=== PATIENT | female | born 1950 | race Caucasian/White ===

== ENCOUNTER → 2016-03-03 | Outpatient (CLI) | payer BC, OTHER ==
--- NOTE | 2016-03-03 16:40 | MAMMOGRAPHY REPORT ---
BILATERAL DIGITAL SCREENING MAMMOGRAM TOMOSYNTHESIS WITH CAD: 03/03/2016 CLINICAL HISTORY: Routine screening. Patient has no complaints. TECHNIQUE: Breast tomosynthesis in addition to standard 2D mammography was performed. Current study was also evaluated with a Computer Aided Detection (CAD) system. COMPARISON: Comparison is made to exams dated: 03/02/2015 mammogram, 11/20/2012 mammogram, 12/27/2013 mammogram - [facility], and 09/20/2011 mammogram - [facility]. BREAST COMPOSITION: The tissue of both breasts is heterogeneously dense, which may obscure small ma sses. FINDINGS: No suspicious masses, calcifications, or areas of architectural distortion are noted in e ither breast. There has been no significant interval change compared to prior exams. IMPRESSION: ACR BI-RADS CATEGORY 1: NEGATIVE There is no mammographic evidence of malignancy. A 1 year screening mammogram is recommended. The p atient will receive written notification of the results. Approximately 10% of breast cancers are not detected with mammography. A negative mammographic repor t should not delay biopsy if a clinically suggestive mass is present. Romina Ray M.D. ah/:03/03/2016 13:52:22 [employer] Driver: Chaya EWING(Ricardo)(M), [facility] letter sent: Normal 1/2 BI-RADS Code: ACR BI-RADS Category 1: Negative
== END | disposition home or self-care (01) ==
LOC: C.MAMM 09:45
PROVIDERS: ATTEND Family Medicine
DX: Z12.31 Encounter for screening mammogram for malignant neoplasm of breast (principal)

== ENCOUNTER → 2016-03-29 | Outpatient (CLI) | payer BC, OTHER | END | disposition home or self-care (01) | LOC: C.PAPS 13:46 | PROVIDERS: ATTEND Obstetrics & Gynecology | DX: Z01.419 Encounter for gynecological examination (general) (routine) without abnormal findings (principal) ==

== ENCOUNTER → 2017-05-09 | Outpatient (CLI) | payer OTHER ==
--- NOTE | 2017-05-09 15:15 | MAMMOGRAPHY REPORT ---
BILATERAL DIGITAL SCREENING MAMMOGRAM TOMOSYNTHESIS WITH CAD: 05/09/2017 CLINICAL HISTORY: Routine screening. Patient has no complaints. TECHNIQUE: Breast tomosynthesis in addition to standard 2D mammography was performed. Current study was also evaluated with a Computer Aided Detection (CAD) system. COMPARISON: Comparison is made to exams dated: 03/03/2016 mammogram, 03/02/2015 mammogram, 12/27/2013 ma mmogram, 11/20/2012 mammogram - [facility], 09/20/2011 mammogram, and 01/08/2008 mamm ogram - [facility]. BREAST COMPOSITION: The tissue of both breasts is heterogeneously dense, which may obscure small mas ses. FINDINGS: The parenchymal pattern is unchanged. No developing mass, architectural distortion or clus ter of suspicious microcalcifications is seen in either breast. IMPRESSION: ACR BI-RADS CATEGORY 2: BENIGN There is no mammographic evidence of malignancy. A 1 year screening mammogram is recommended. The pa tient will receive written notification of the results. Approximately 10% of breast cancers are not detected with mammography. A negative mammographic report should not delay biopsy if a clinically suggestive mass is present. Jeny Dobson M.D. ay/:05/09/2017 08:08:51 Principal Consultant: Gabrielle EWING(Ricardo)(Josue)(BD), [facility] letter sent: Normal 1/2 BI-RADS Code: ACR BI-RADS Category 2: Benign
== END | disposition home or self-care (01) ==
LOC: C.MAMM 07:09
PROVIDERS: ATTEND Family Medicine
DX: Z12.31 Encounter for screening mammogram for malignant neoplasm of breast (principal)

== ENCOUNTER 2019-10-01 06:39 | Observation (INO) ==
--- NOTE | 2019-08-29 14:28 | PAT Medication Instructions ---
Medication Instructions Date of Service August 29, 2019 Home Medications Medication Instructions Recorded Wheeled Walker #1 ea 07/18/19 Wheeled Walker #1 ea 07/18/19 atorvastatin 40 mg tablet 40 mg PO QAM doxepin 25 mg capsule 25 mg PO HS betamethasone dipropionate 1 applic TOPICAL BID PRN losartan 100 mg PO QAM meloxicam 15 mg PO QAM ASK your surgeon for instructions meloxicam 15 mg PO QAM STOP taking 24 hours before surgery betamethasone dipropionate 1 applic TOPICAL BID PRN DO NOT take the morning of surgery losartan 100 mg PO QAM Take morning of surgery With a small sip of water, OTHERWISE NOTHING TO EAT OR DRINK AFTER MIDNIGHT: atorvastatin 40 mg tablet 40 mg PO QAM Take evening before surgery doxepin 25 mg capsule 25 mg PO HS Other Notes If you have any questions please call us at [phone] or [phone] or [phone] or [phone]
--- NOTE | 2019-09-02 09:53 | Anesthesiology Consultation ---
Date of Service September 02, 2019 Assessment & Plan (1) Encounter for pre-operative examination: COVID Status: As of 09/01 assessment, patient denies travel to endemic area, known exposure/sick contacts, or symptoms of COVID19. Patient instructed to follow strict social distancing guidelines, wear a mask in public and avoid travel for 14 days prior to surgery. Preoperative COVID19 testing to be completed 09/25 per patient. Patient made aware to self-isolate as much as possible between COVID testing and surgery. Chart Review Chart Review: Acceptable Risk for Surgery and Patient seen in Pre Admission Testing Teaching & Discussion Instructed NPO after midnight before surgery, except medications with 15 cc of water. Medication instructions provided according to the PAT guidelines. History Surgery Operation Date: 10/01/19 10:40 Proposed Procedures p Left Total Knee Arthroplasty - Malik Acevedo MD Height/Weight Height: 5 ft 4 in Weight: 80.2 kg Allergies Allergy/AdvReac Type Severity Reaction Status Date / Time Penicillins Allergy Unknown unknown - Verified 08/29/19 10:18 as a child Medications Home Medications Medication Instructions Recorded Confirmed Last Taken atorvastatin 40 mg tablet 40 mg PO QAM 03/04/19 08/29/19 Unknown doxepin 25 mg capsule 25 mg PO HS 03/04/19 08/29/19 Unknown Wheeled Walker #1 ea 07/18/19 07/18/19 Unknown Wheeled Walker #1 ea 07/18/19 07/18/19 Unknown betamethasone dipropionate 1 applic TOPICAL BID PRN 08/29/19 08/29/19 Unknown losartan 100 mg PO QAM 08/29/19 08/29/19 Unknown meloxicam 15 mg PO QAM 08/29/19 08/29/19 Unknown Past Medical History Medical History Cardiac murmur Normal valves per echo 2014. Degenerative arthritis of knee, bilateral Diverticular disease GERD (gastroesophageal reflux disease) rarely -- diet regulated Hyperlipidemia Hypertension Osteoarthritis Psoriasis Exercise / Class Metabolic Activity II 4-5 Yardwork/Stairs/Walk up hill (Does not do stairs much but rides recumbant bicycle 5x per week, denies CP or SOB with activity) Past Family History Family History Other No family history of adverse response to anesthesia Past Surgical History Surgical History History of colonoscopy History of dental surgery History of tonsillectomy Past Anesthesia History No Hx of Anesthesia Complications (other than PONV) and No Family Hx of Anesthesia Complications History of PONV No Hx of Motion Sickness and History of PONV (remote hx) Social History Smoking Status: Former smoker tobacco type: cigarettes Do You Dip or Chew Tobacco: No Smoking End Date: 1991 Hx Alcohol Use: Yes Alcohol type: beer alcohol intake frequency: a few times a week Hx Substance Use: No substance use type: does not use Review of Systems Pt denies any recent chest pain, shortness of breath, palpitations, cough, fever or URI. Physical Exam Vital Signs BP: 173/90 (pt reports this is very elevated for her, usually 130s systolic at home, she is nervous today) P: 85bpm SPO2: 97% RA T: 98.5 F R: 12 ENMT Mouth: + dental bridge (Upper R side and lower L side) and + dental restorations (crowns, implants, bridge); no chipped teeth and no loose teeth Thyromental Distance: < 3.5 Finger Breadths (3) Mallampati Class: I Neck normal visual inspection and + limited neck extension (mildly) Respiratory normal respiratory effort Auscultation: lungs clear to auscultation bilaterally Cardiovascular Rate/Rhythm: regular rate and regular rhythm Heart Sounds: + murmur (I/ systolic) Extremities: no edema Testing Laboratory Results 09/02/19 10:05 09/02/19 10:49 PT 10.3 Seconds (9.0-12.0) 09/02/19 10:05 INR 1.0 (0.9-1.1) 09/02/19 10:05 APTT 31.3 Seconds (21.0-31.0) H 09/02/19 10:05 Blood Type O Negative 09/02/19 10:05 Antibody Screen NEGATIVE 09/02/19 10:05 Electrocardiogram Date: 09/02/19 Findings: + NSR @ (89bpm) Chest X-Ray Date: 09/02/19 Findings: + NAD Echocardiogram Date: 07/11/14 EF: 65% LV Function: normal RWMA: + none Other Findings: + diastolic dysfunction (Grade I); no LVH Mild pulmonary HTN (PASP 36 mmHg).
--- NOTE | 2019-09-02 10:24 | XRay Report ---
XR chest Pre-admission PA/Lat CLINICAL HISTORY: Preoperative evaluation. COMPARISON STUDY: No previous studies for comparison. FINDINGS: Lung volumes are normal. Lungs are clear. There is no pneumothorax or pleural effusion. Car diac size is normal. Mediastinal contours are normal. There is no evidence for pulmonary edema. IMPRESSION: No acute cardiopulmonary findings. ACT 112: Negative or not required by law. Electronically signed by: Kirill Gomez M.D. 09/02/2019 10:23 AM
[2019-09-02 10:29] LABS: Basophils # (auto) 0.03 K/uL (0-0.2); Basophils % (auto) 0.4 %; Eosinophils # (auto) 0.29 K/uL (0-0.5); Hemoglobin 12.6 g/dL (12.0-16.0); Immature Granulocytes # (auto) 0.01 K/uL (0.00-0.02); Immature Granulocytes % (auto) 0.1 %; Lymphocytes # (auto) 1.68 K/uL (1.2-3.4); Lymphocytes % (auto) 23.1 %; Mean Corpuscular Hemoglobin 30.9 pg (25-34); Mean Corpuscular Hgb Conc 33.2 g/dL (32-36); Mean Corpuscular Volume 93.1 fL (80-100); Mean Platelet Volume 10.3 fL (7.4-10.4); Monocytes # (auto) 0.47 K/uL (0.11-0.59); Monocytes % (auto) 6.5 %; Neutrophils # (auto) 4.79 K/uL (1.4-6.5); Neutrophils % (auto) 65.9 %; Platelet Count 267 K/uL (130-400); RDW Coefficient of Variation 13.3 % (11.5-14.5); RDW Standard Deviation 45.2 fL (36.4-46.3); Red Blood Count 4.08 M/uL (4.2-5.4); White Blood Count 7.27 K/uL (4.8-10.8)
[2019-09-02 10:37] LABS: Partial Thromboplastin Ratio 1.1; Partial Thromboplastin Time 31.3 Seconds (21.0-31.0); Prothrombin Time 10.3 Seconds (9.0-12.0)
[2019-09-02 12:21] LABS: BUN Creatinine Ratio 11.8 (10-20); Calcium 9.2 mg/dl (8.5-10.1); Creatinine Clr Calc Pharmacy 51.3 ml/min; Est GFR (African American) 60.8; Est GFR (Non-African American) 52.5; Potassium 4.3 mmol/L (3.5-5.1)
--- NOTE | 2019-09-03 06:20 | Electrocardiogram Report ---
Test Reason : Blood Pressure : / mmHG Vent. Rate : 089 BPM Atrial Rate : 089 BPM P-R Int : 158 ms QRS Dur : 074 ms QT Int : 360 ms P-R-T Axes : 071 044 054 degrees QTc Int : 438 ms Normal sinus rhythm Normal ECG No previous ECGs available Confirmed by Jason Roe ([id number]) on 09/03/2019 6:19:51 AM Referred By: Malik Acevedo Confirmed By:Jason Roe
--- NOTE | 2019-09-29 09:12 | History and Physical Report ---
DATE OF ADMISSION: 10/01/2019 CHIEF COMPLAINT: Bilateral knee pain and discomfort, left side greater than the right. HISTORY OF PRESENT ILLNESS: A 69-year-old white female who presents for treatment of her knees. I have been following her in the past several years with injections. This became less successful over time. Left knee is bothering her more in the right. She describes global pain. The more she is on it, the more it hurts. She has a limited walking tolerance. She has difficulty going up and down stairs. Her knee gives out on her intermittently. She was hoping to have both knees fixed at some point. PAST MEDICAL HISTORY: 1. Hypertension. 2. Elevated cholesterol. 3. Heart murmur. 4. Gastroesophageal reflux disease. 5. Mild obesity. PAST SURGICAL HISTORY: Include: 1. Tonsillectomy. 2. Oral surgery. ALLERGIES: PENICILLIN, REACTIONS UNKNOWN. This was when she was an infant. CURRENT MEDICATIONS: Include; 1. Meloxicam 15 mg. 2. Losartan 50 mg a day. 3. Atorvastatin 40 mg. 4. Doxepin 25 mg a day. SOCIAL HISTORY: A 69-year-old female. She lives in [place]. Three drinks per week. Quit smoking 20 years ago. FAMILY HISTORY: Noncontributory. REVIEW OF HISTORY: Negative for diabetes, neurologic problem, vascular problems or bleeding disorders. No chest pain or shortness of breath. No history of DVT or PE. No known bleeding problems. PHYSICAL EXAMINATION GENERAL: Shows a pleasant, middle-aged female who looks to be in pretty good health. HEENT: Benign. NECK: Supple, no lymphadenopathy. LUNGS: Clear to auscultation. HEART: Has a regular rate and rhythm. ABDOMEN: Soft, nontender, nondistended. EXTREMITIES: Grossly neurovascularly intact except as follows: Examination of both knees reveal patient walks with a bit of a slow kind of shuffling gait. Examination of the left knee reveals fairly neutral alignment. She is tender over the medial joint line. Small knee effusion. Range of motion is couple degrees short of full extension to 125 degrees of flexion. There is no instability. No pain with hip motion. Examination of the right knee reveals fairly neutral alignment. She is tender over the medial joint line. Small knee effusion. Range of motion 0-125. No instability. X-RAYS: X-rays of both knees reveal advanced medial compartment DJD. She has got complete loss of medial joint space in both knees. She has got osteophytes off the medial femoral condyle, medial tibial plateau and cystic changes. Right knee is actually a little bit worse radiographically than the left. ASSESSMENT: A 69-year-old female with history of hypertension, elevated cholesterol, gastroesophageal reflux disease and mild obesity with advanced bilateral knee degenerative joint disease, left side more symptomatic than the right. She has failed conservative treatment and would like to have her left knee replaced. PLAN: We are going to proceed with left knee replacement. The risks and benefits of this procedure were explained to the patient including but not limited to DVT, PE, , infection, neurological injury, vascular injury, bleeding problem, pain, limited range of motion, stiffness, failure to relieve her symptoms, incomplete relief of symptoms, need for further surgery in future, fracture, leg length inequality, nerve palsy, persistent pain, etc. The patient understands and desires to proceed. Informed consent was obtained. She is planning likely be discharged to home. Her daughter is a physical therapist and will likely do therapy with her. She will hold the Mobic 10 days preop. We can use this for postoperative pain control as well.
[~2019-10-01 06:39] MED LIST: ACETAMINOPHEN 500 MG TAB PO SCH; BUPIVACAINE 0.5 % 5 MG/1 ML PF 10ML VIAL ONE; BUPIVACAINE LIPOSOME/PF 266 MG, BUPIVACAINE/EPINEPHRINE 50 ML, SODIUM CHLORIDE 0.9% 30 ... INFIL SCH; CEFAZOLIN 2000MG 2,000 MG/15 ML SYR IV SCH; FAMOTIDINE 20 MG TAB PO SCH; GABAPENTIN 300 MG CAP PO SCH; LR 500ML BOLUS, THEN 15ML/HR IV SCH; LR 60ML/HR IV SCH; METOCLOPRAMIDE HCL 10 MG TABLET PO SCH; TRANEXAMIC ACID 1,000 MG **IV Intra-op IV SCH
--- NOTE | 2019-10-01 06:47 | History & Physical Bridge Note ---
Date of Service October 01, 2019 History & Physical Bridge Note I have examined the patient, reviewed the History & Physical and in the interval since the performance of the History & Physical I have noted the following changes of clinical significance: no changes noted
[2019-10-01] MEDS ORDERED: fentaNYL citrate 100 MCG/2 ML VIAL ONE (07:06)
[2019-10-01] MEDS ORDERED: PROPOFOL IV EMULSION 10 MG/ML 20 ML VIAL IV ONE ×2 (07:06→09:50)
[2019-10-01] MEDS ORDERED: MIDAZOLAM HCL 1 MG/ML 2ML VIAL ONE (07:06)
[2019-10-01] MEDS ORDERED: fentaNYL citrate 100 MCG/2 ML VIAL IV PRN (08:02)
[2019-10-01] MEDS ORDERED: ATROPINE SULFATE 0.1 MG/ML 10ML SYR IV PRN (08:02)
[2019-10-01] MEDS ORDERED: ePHEDrine sulfate 50 MG/ML AMP IV PRN (08:02)
[2019-10-01] MEDS ORDERED: ONDANSETRON INJ 2 MG/ML 2 ML VIAL IV PRN ×2 (08:02→12:01)
[2019-10-01] MEDS ORDERED: BACITRACIN INJ 50,000 UNIT VIAL ONE (08:20)
[2019-10-01] MEDS ORDERED: SODIUM CHLORIDE 0.9% PF 50 ML VIAL ONE (08:20)
[2019-10-01] MEDS ORDERED: BUPIVACAINE LIPOSOME 1.3% 266 MG/20 ML VIAL ONE (08:20)
[2019-10-01] MEDS ORDERED: BUPIVACAINE/EPINEPHRINE 0.25% 1:200,000 30 ML VIAL ONE (08:20)
--- NOTE | 2019-10-01 10:17 | Post Operative Brief Note ---
PG Immediate Post Op with CF Date of Surgery October 01, 2019 Pre & Post Diagnosis Operation Date: 10/01/19 08:50 Pre-Op Diagnosis: Left Knee Degenerative Joint Disease Post-Op Diagnosis: Left Knee Degenerative Joint Disease I identified the patient and participated in the time-out.: Yes Procedure Operation Date: 10/01/19 08:50 Actual Procedures p Left Total Knee Arthroplasty.(Left) - Malik Acevedo MD Surgeon Malik Acevedo MD [employer] Nurse Michael, PAC Estimated Blood Loss 50 Findings Consistent with Post-Op Diagnosis Fluids 600 cc Specimens Specimen Description: A. Left knee bone and tissue. Drains Curtis Catheter Anesthesia Type Spinal MAC Complications none Disposition Accompanied Patient To Recovery: Yes Disposition: Recovery Room
--- NOTE | 2019-10-01 10:33 | Operative Report ---
Post Operative Report Pre & Post Diagnosis Operation Date: 10/01/19 08:50 Pre-Op Diagnosis: Left Knee Degenerative Joint Disease Post-Op Diagnosis: Left Knee Degenerative Joint Disease I identified the patient and participated in the time-out.: Yes Procedure Operation Date: 10/01/19 08:50 Actual Procedures p Left Total Knee Arthroplasty.(Left) - Malik Acevedo MD Surgeon Malik Acevedo MD [employer] Developer Mihcael, PAC Estimated Blood Loss 50 Findings Consistent with Post-Op Diagnosis Operative findings revealed advanced left knee DJD with extensive grade 4 [id number] disease of the medial compartment with eburnation of the medial femoral condyle medial tibial plateau. She had some spotty grade 4 changes elsewhere. Moderate-sized joint effusion. Osteophytes primarily in the medial compartment. Fluids 600 cc. Specimens Left knee sent for pathology. Drains None. Anesthesia Type Spinal MAC Complications none Disposition Accompanied Patient To Recovery: Yes Disposition: Recovery Room Indications Patient is a 69-year-old female long-term patient of mine with a long history of bilateral knee pain discomfort left side bit worse than the right. She been through extensive conservative treatment over the years which is become less successful over time P the left knee was bothering her more than the right. X- rays show advanced knee arthritis. She elected to total knee arthroplasty. Description of Procedure Operative implants consist of: 1. Biomet Vanguard size 62.5 left posterior stabilized femoral component. 2. Size 67 tibial tray. 3. 10 mm posterior stabilized polyethylene insert. 4. 28 x 8 all poly-patella. Patient was taken to the operating room identified and placed on the operating table supine position protectors were properly padded. IV antibiotics arrived by anesthesia team. A spinal anesthetic and abductor canal block had provided in the holding area. Curtis catheter was placed in sterile fashion. Left thigh tip was then placed in the left lower extremities and prepped and draped in usual sterile fashion. The left leg was elevated exsanguinated with use of an Esmarch and a tourniquet was placed at 300 mmHg. An anterior approach to the left knee was then performed to longitudinal incision centered over the patella. Sharp dissection was got through subcutaneous tissue down to the extensor mechanism. A medial parapatellar arthrotomy incision was made. Some subperiosteal dissection was carried out medially. The fat pad was resected from each patella tendon. Lateral patellofemoral ligament was released. Patella was subluxated laterally and the knee was flexed. The osteophytes were taken off the distal femur. The ACL and PCL were then released and distal femur the tibia subluxate anteriorly. The external tibial alignment jig was then placed in the interface the tibia adjusted 14 mm medially. Proximal tibial cut was made to remove about 2 mm of bone from the most efficient aspect medial tibial plateau. Some osteophytes were taken off medial and posterior medially. The tibia sized to a size 67. Attention drawn the femur. The distal femur stem with a sharp drop with intramedullary canal was suction. A left 5 degree valgus cutting guide was placed. This femoral cutting block was pinned in place but distal femoral cut was made to take an additional 3 mm of bone off distal femur. The femur was then sized to a size 62.5. We did downsize this about a half a size. The AP cutting block was pinned parallel to the epicondylar axis which was 5 degrees of external rotation. The anterior cut, anterior chamfer, posterior cut, posterior chamfer cuts were made. Box cutting guide was placed in just slight lateral and the box cut was made. The knee was flexed. The remnants of the medial and lateral menisci were excised. The osteophytes were taken off the posterior aspect of the femur. A trial femoral component was placed for the tibial tray was pinned in maximum external rotation and the drill and stem punch were used to create defect in proximal tip for the tibial tray. Knee was then trialed the 10 mm insert fit most appropriately. Attention drawn the patella. The patella was cleaned of all soft tissues. Patella thickness measured 22 mm and was cut down to 13. Was sized to a size 28 patella. Locals were drilled for the 28 patella. The lateral osteophyte was removed. Patella button was placed. Knee was taken through range of motion patella tracked nicely with no thumbs test. Attention drawn to placing permanent components. All trial components were removed. A bone plug was placed in the distal femur limit blood loss put a double batch [place] G cement was mixed. A Biomet Vanguard size 62.5 left posterior by femoral component, size 67 tibial tray, 10 mm posterior box polyethylene insert, and a 28 x 8 all poly-patella were then cemented in place. Knee was brought under full extension total cement hardened. Final cement check was then performed. Pericapsular tissues were injected with total 100 cc of combination of 20 cc of Exparel, 30 cc normal saline, 50 cc of quarter percent Marcaine with epinephrine. Patient did receive 1 g tranexamic acid. Check was then let down for final turn time 49 minutes. Hemostasis assured use electrocautery. Extensor mechanism closed with combination 1 PDS suture #1 Vicryl suture in [id number] fashion. Extensor mechanism was checked and found to be intact. The subcutaneous tissue then closed with 2 Dexon suture in a buried interrupted fashion skin was closed skin sammy. Leg was then cleaned dried and sterile dressed composed Xeroform, 4 x 4's, sterile cast padding, Keny bandage were applied. Patient transferred to the recovery room in stable condition. Patient tolerated the procedure well and there were no complications. Man Rodriguez, my physician audiology assistant, was present for the entire procedure. His presence was critical and essential to performing this procedure, specifically in positioning the patient, prepping and draping, surgical exposure, retraction, performing the technical details of the operation, placing the implants, closing the wound, and placing the sterile bandage. I attest to the content of the Intraoperative Record and any orders documented therein. Any exceptions are noted below.
--- NOTE | 2019-10-01 11:08 | Anesthesiology Progress Note ---
Date of Service October 01, 2019 Anesthesia Post Procedure Vital Signs Vital Signs: Temp Pulse Pulse Resp BP BP Pulse Ox 10/01/19 10:55 97 H 16 139/59 L 96 10/01/19 10:45 98.1 F 98 H 16 139/64 98 10/01/19 10:35 103 H 16 139/68 98 10/01/19 10:25 103 H 18 133/58 L 100 10/01/19 10:18 96.8 F L 107 H 18 128/54 L 98 10/01/19 07:47 97.9 F 95 H 18 147/74 H 97 10/01/19 07:00 98.8 F 106 H 18 175/92 H 98 Transfer of Care Handoff Completed per policy Notes Mental Status: alert / awake / arousable and participated in evaluation Patient Amnestic to Procedure: Yes Nausea / Vomiting: adequately controlled Pain: adequately controlled Airway Patency, RR, SpO2: stable & adequate BP & HR: stable & adequate Hydration State: stable & adequate Neuraxial Anesthesia: was administered and sensory block is resolving Anesthetic Complications: no major complications apparent and Pt Satisfied with anesthetic care
--- NOTE | 2019-10-01 11:26 | XRay Report ---
XR knee LT 1 or 2V routine HISTORY: 69 years-old Female Surgical Post Op left knee total joint arthroplasty COMPARISON: Knee radiographs 07/18/2019 TECHNIQUE: 2 views of the left knee FINDINGS: Left knee total joint arthroplasty and patella resurfacing. Satisfactory alignment without acute frac ture or retained foreign body. Anterior midline skin sammy are noted along with expected postsurgic al soft tissue swelling and deep tissue air. Surgical drainage catheter. IMPRESSION: Left knee total joint arthroplasty and patella resurfacing with expected postoperative ch anges. ACT 112: Negative or not required by law. The above report was generated using voice recognition software. It may contain grammatical, syntax o r spelling errors. Electronically signed by: Kenneth Mccloud M.D. 10/01/2019 11:25 AM
[2019-10-01] MEDS ORDERED: NALOXONE HCL 0.4 MG/1 ML VIAL/CARP IV PRN (12:01)
[2019-10-01] MEDS ORDERED: METOCLOPRAMIDE HCL INJ 5 MG/ML 2 ML VIAL IV PRN (12:01)
[2019-10-01] MEDS ORDERED: MAGNESIUM HYDROXIDE SUSP 30 ML UDC PO PRN (12:01)
[2019-10-01] MEDS ORDERED: HYDROmorphone INJ 0.5 MG/0.5 ML SYR IV PRN (12:01)
[2019-10-01] MEDS ORDERED: ALUMINUM/MAGNESIUM SUSP 30 ML UDC PO PRN (12:01)
[2019-10-01] MEDS ORDERED: bisacodyL 10 MG SUPP PR PRN (12:01)
[2019-10-01] MEDS ORDERED: BETAMETHASONE DIP AUG (DIPROLENE) 0.05% CR 15 GM TUBE EXT PRN (12:12)
[2019-10-01] MEDS: KETOROLAC TROMETHAMINE 15 MG/ML VIAL IV SCH ×2 (13:18→17:20)
[2019-10-01] MEDS: SODIUM CHLORIDE 0.9% 1000ML 1,000 ML IV SCH (14:02)
[2019-10-01] MEDS: ACETAMINOPHEN 500 MG TAB PO SCH ×2 (14:02→20:33)
[2019-10-01] MEDS: Scopolamine CHECK PATCH PLACEMENT SCH (15:10)
[2019-10-01] MEDS: TRAMADOL HCL 50 MG TABLET PO PRN (16:28)
[2019-10-01] MEDS ORDERED: TRANEXAMIC ACID / 0.7% NACL 1,000 MG/100 ML BAG IV SCH (16:30)
[2019-10-01] MEDS: FERROUS GLUCONATE 324 MG TAB PO SCH (17:19)
[2019-10-01] MEDS: ASCORBIC ACID 500 MG TAB PO SCH (17:19)
[2019-10-01] MEDS: CEFAZOLIN 2000MG 2,000 MG/15 ML SYR IV SCH (17:20)
[2019-10-01] MEDS: DOXEPIN HCL 25 MG CAPSULE PO SCH (20:33)
[2019-10-01] MEDS: DOCUSATE SODIUM 100 MG CAP PO SCH (20:33)
[2019-10-01] MEDS: ASPIRIN 81 MG ECTAB PO SCH (20:33)
[2019-10-01] MEDS: SENNA 8.6 MG TAB PO SCH (20:33)
[2019-10-02] MEDS: KETOROLAC TROMETHAMINE 15 MG/ML VIAL IV SCH (00:14)
[2019-10-02] MEDS: Scopolamine CHECK PATCH PLACEMENT SCH (00:14)
[2019-10-02] MEDS: SODIUM CHLORIDE 0.9% 1000ML 1,000 ML IV SCH ×2 (00:14→11:36)
[2019-10-02] MEDS: CEFAZOLIN 2000MG 2,000 MG/15 ML SYR IV SCH (00:22)
[2019-10-02 00:44] LABS: Basophils # (auto) 0.01 K/uL (0-0.2); Basophils % (auto) 0.1 %; Eosinophils # (auto) 0.02 K/uL (0-0.5); Eosinophils % (auto) 0.2 %; Hematocrit (blood only) 30.7 % (37-47); Hemoglobin 10.4 g/dL (12.0-16.0); Immature Granulocytes # (auto) 0.03 K/uL (0.00-0.02); Immature Granulocytes % (auto) 0.2 %; Lymphocytes # (auto) 0.92 K/uL (1.2-3.4); Lymphocytes % (auto) 7.2 %; Mean Corpuscular Hemoglobin 30.8 pg (25-34); Mean Corpuscular Volume 90.8 fL (80-100); Mean Platelet Volume 9.9 fL (7.4-10.4); Monocytes # (auto) 0.75 K/uL (0.11-0.59); Monocytes % (auto) 5.8 %; Neutrophils # (auto) 11.13 K/uL (1.4-6.5); Neutrophils % (auto) 86.5 %; Platelet Count 236 K/uL (130-400); RDW Coefficient of Variation 12.8 % (11.5-14.5); RDW Standard Deviation 42.5 fL (36.4-46.3); Red Blood Count 3.38 M/uL (4.2-5.4); White Blood Count 12.86 K/uL (4.8-10.8)
[2019-10-02 00:54] LABS: Mean Corpuscular Hgb Conc 33.9 g/dL (32-36)
[2019-10-02 01:02] LABS: Alanine Aminotransferase 20 U/L (12-78); Albumin Level 3.1 gm/dl (3.4-5.0); Aspartate Aminotransferase 19 U/L (15-37); BUN Creatinine Ratio 11.9 (10-20); Blood Urea Nitrogen 17 mg/dl (7-18); Calcium 8.2 mg/dl (8.5-10.1); Carbon Dioxide 21 mmol/L (21-32); Chloride 111 mmol/L (98-107); Creatinine Clr Calc Pharmacy 39.8 ml/min; Est GFR (African American) 44.9; Est GFR (Non-African American) 38.8; Glucose 120 mg/dl (70-99); Magnesium 1.6 mg/dl (1.8-2.4); Potassium 3.9 mmol/L (3.5-5.1); Sodium 141 mmol/L (136-145)
[2019-10-02 01:06] LABS: Alkaline Phosphatase 72 U/L (45-117); Globulin 3.1 gm/dl (2.5-4.0); Total Protein 6.2 gm/dl (6.4-8.2); Troponin I < 0.015 ng/ml (0-0.045)
--- NOTE | 2019-10-02 01:30 | Hospitalist Consultation ---
Date of Consultation October 02, 2019 Assessment & Plan (1) Status post fall: Patient seen status post slip and fall while on the toilet seat trying to get up. No signs of orthostasis. No signs of head trauma. No significant injury to left total knee arthroplasty Patient is alert and oriented x3. No need for imaging of brain. Present on Admission?: Yes (2) Acute kidney injury: Creatinine 1.40, with entrance creatinine 1.09. Would hold Cozaar, Toradol and meloxicam. Continue IV fluids. Serial BMP. Present on Admission?: Yes (3) Hyperlipidemia: Continue atorvastatin 40 mg daily Present on Admission?: Yes (4) Hypomagnesemia: Magnesium level 1.6, with associated sinus tachycardia Give 2 g magnesium sulfate IV. Serial magnesium levels Present on Admission?: Yes (5) Sinus tachycardia: Sinus tachycardia/hypertension- Replace magnesium sulfate as noted above. Holding losartan. Placed on metoprolol tartrate 25 mg p.o. twice daily with hold parameters. Present on Admission?: Yes (6) Hypertension: See above Present on Admission?: Yes History of Present Illness Reason for Consultation: Consult is placed due to patient fall while in restroom. Attending Physician: Malik Acevedo MD History of Present Illness The patient is a 69-year-old female Status post left total knee arthroplasty by Dr. Malik Acevedo, who reports that when she was in the bathroom earlier this evening she slipped while getting up off the seat and primarily fell and bumped her operated knee. She has some mild knee discomfort this time, but otherwise has no complaints. Allergies Allergy/AdvReac Type Severity Reaction Status Date / Time Penicillins Allergy Unknown unknown - Verified 10/01/19 06:57 as a child Home Medications Home Medications Medication Instructions Recorded Confirmed Type atorvastatin 40 mg tablet 40 mg PO QAM 03/04/19 10/01/19 History doxepin 25 mg capsule 25 mg PO HS 03/04/19 10/01/19 History Wheeled Walker #1 ea 07/18/19 07/18/19 Rx Wheeled Walker #1 ea 07/18/19 07/18/19 Rx betamethasone dipropionate 1 applic TOPICAL BID PRN 08/29/19 10/01/19 History losartan 100 mg PO QAM 08/29/19 10/01/19 History meloxicam 15 mg PO QAM 08/29/19 10/01/19 History acetaminophen 1,000 mg PO Q8 30 Days #180 tab 10/01/19 Rx aspirin 81 mg PO BID 45 Days #90 tab 10/01/19 Rx ferrous gluconate 324 mg PO BIDM 30 Days #60 tab 10/01/19 Rx tramadol 50 - 100 mg PO Q6H PRN #40 tab 10/01/19 Rx Patient History Medical History Cardiac murmur Normal valves per echo 2014. Degenerative arthritis of knee, bilateral Diverticular disease GERD (gastroesophageal reflux disease) rarely -- diet regulated Hyperlipidemia Hypertension Osteoarthritis Psoriasis Surgical History History of colonoscopy History of dental surgery History of tonsillectomy Family History Other No family history of adverse response to anesthesia Social History Smoking Status: Former smoker Smoking End Date: 1991; Second Hand Exposure: No; Do You Dip or Chew Tobacco: No; Tobacco Cessation Education Requested by Patient: No Hx Alcohol Use: Yes Alcohol type: beer Hx Substance Use: No Preferred Language: Wallisian Communication Ability: Effective Alum Mixer Required: No Beliefs That Will Affect Care: None marital status: Current Living Situation: Spouse Other Information That Helps Us Care for You: No Feels Safe at Home: Yes Safety Concerns: Feels Safe At This Time Review of Systems Review of Systems: The patient denies chest pain, palpitations, shortness of breath, dyspnea on exertion, cough, sore throat, fevers, chills, sweats, nausea, vomiting, diarrhea , constipation, abdominal pain, pelvic pain, blood in urine or stool, dysuria, urinary frequency or urgency, memory loss, loss of consciousness, rash, abnormal bruising or bleeding, generalized weakness, numbness or tingling in arms or legs, generalized arthralgias or myalgias, back or neck pain, or night sweats. The review of systems is otherwise negative other than for that already noted above, and at least 10 systems have been reviewed. Physical Exam Physical Exam: The patient is awake, alert and oriented 3, well developed and well nourished, normocephalic and atraumatic, lying in bed and in no acute distress. HEENT--PERRL, EOMI, mucous membranes and oropharynx normal. Neck--supple. No JVD. No bruits. Thyroid normal, trachea midline, no adenopathy. Heart--normal S1 and S2. No murmurs, rubs or gallops. Lungs--clear bilaterally, no respiratory distress, no accessory muscle use. Abdomen--normal bowel sounds and soft. Nontender. Nondistended. Extremities--no cyanosis or clubbing. No edema. Dermatologic--normal skin turgor, normal color, no abnormal lymph nodes, no rash. Neurologic--cranial nerves II through XII grossly intact. Rheumatologic--expected postop exam. Incision clean dry and intact Psychiatric--normal affect. Results & Data Results & Data ([facility]) Vital Signs (Past 12 Hours) Vital Signs Temp Pulse Pulse Resp BP BP Pulse Ox 10/02/19 00:45 152/73 H 10/02/19 00:00 97.5 F L 117 H 18 168/76 H 97 10/01/19 19:34 97.5 F L 68 16 136/79 98 10/01/19 17:16 97.2 F L 10/01/19 14:28 97.0 F L 69 16 119/74 98 10/01/19 14:08 96.3 F L 10/01/19 13:34 97.0 F L 72 16 122/69 100 Laboratory Results Laboratory Results WBC 12.86 K/uL (4.8-10.8) H 10/02/19 00:32 RBC 3.38 M/uL (4.2-5.4) L 10/02/19 00:32 Hgb 10.4 g/dL (12.0-16.0) L 10/02/19 00:32 Hct 30.7 % (37-47) L 10/02/19 00:32 MCV 90.8 fL (80-100) 10/02/19 00:32 MCH 30.8 pg (25-34) 10/02/19 00:32 MCHC 33.9 g/dL (32-36) 10/02/19 00:32 RDW Std Deviation 42.5 fL (36.4-46.3) 10/02/19 00:32 RDW Coeff of Carlyle 12.8 % (11.5-14.5) 10/02/19 00:32 Plt Count 236 K/uL (130-400) 10/02/19 00:32 MPV 9.9 fL (7.4-10.4) 10/02/19 00:32 Immature Gran % (Auto) 0.2 % 10/02/19 00:32 Neut % (Auto) 86.5 % 10/02/19 00:32 Lymph % (Auto) 7.2 % 10/02/19 00:32 [place] % (Auto) 5.8 % 10/02/19 00:32 Eos % (Auto) 0.2 % 10/02/19 00:32 Baso % (Auto) 0.1 % 10/02/19 00:32 Neut # (Auto) 11.13 K/uL (1.4-6.5) H 10/02/19 00:32 Lymph # (Auto) 0.92 K/uL (1.2-3.4) L 10/02/19 00:32 [place] # (Auto) 0.75 K/uL (0.11-0.59) H 10/02/19 00:32 Eos # (Auto) 0.02 K/uL (0-0.5) 10/02/19 00:32 Baso # (Auto) 0.01 K/uL (0-0.2) 10/02/19 00:32 Immature Gran # (Auto) 0.03 K/uL (0.00-0.02) H 10/02/19 00:32 PT 10.3 Seconds (9.0-12.0) 09/02/19 10:05 INR 1.0 (0.9-1.1) 09/02/19 10:05 APTT 31.3 Seconds (21.0-31.0) H 09/02/19 10:05 PTT Ratio 1.1 09/02/19 10:05 Sodium 141 mmol/L (136-145) 10/02/19 00:32 Potassium 3.9 mmol/L (3.5-5.1) 10/02/19 00:32 Chloride 111 mmol/L (98-107) H 10/02/19 00:32 Carbon Dioxide 21 mmol/L (21-32) 10/02/19 00:32 Anion Gap 9.0 (3-11) 10/02/19 00:32 BUN 17 mg/dl (7-18) 10/02/19 00:32 Creatinine 1.40 mg/dl (0.6-1.2) H 10/02/19 00:32 Est Cr Clr Drug Dosing 39.8 ml/min 10/02/19 00:32 Est GFR ( Amer) 44.9 10/02/19 00:32 Est GFR (Non-Af Amer) 38.8 10/02/19 00:32 BUN/Creatinine Ratio 11.9 (10-20) 10/02/19 00:32 Glucose 120 mg/dl (70-99) H 10/02/19 00:32 Calcium 8.2 mg/dl (8.5-10.1) L 10/02/19 00:32 Magnesium 1.6 mg/dl (1.8-2.4) L 10/02/19 00:32 Total Bilirubin 1.0 mg/dl (0.2-1) 10/02/19 00:32 AST 19 U/L (15-37) 10/02/19 00:32 ALT 20 U/L (12-78) 10/02/19 00:32 Alkaline Phosphatase 72 U/L (45-117) 10/02/19 00:32 Troponin I < 0.015 ng/ml (0-0.045) 10/02/19 00:32 Total Protein 6.2 gm/dl (6.4-8.2) L 10/02/19 00:32 Albumin 3.1 gm/dl (3.4-5.0) L 10/02/19 00:32 Globulin 3.1 gm/dl (2.5-4.0) 10/02/19 00:32 Albumin/Globulin Ratio 1.0 (0.9-2) 10/02/19 00:32 Hepatitis C Ab Screen Neg (Neg) 10/01/19 06:59 SARS-CoV-2 RNA (RT-PCR) NEGATIVE (Negative) 09/26/19 10:40 Blood Type O Negative 09/02/19 10:05 Antibody Screen NEGATIVE 09/02/19 10:05 PG Care Time/CCT Total # of Minutes Spent Total Time Spent with Patient: Total time spent is greater than 50% in coordin ation of care (as documented) at patient's floor/unit and/or counseling patient: Coding Level of Care Code 02653 Inpt Consult Level 3 Diagnoses Status post fall Z91.81 Acute kidney injury N17.9 Hyperlipidemia E78.5 Hypomagnesemia E83.42 Sinus tachycardia R00.0 Hypertension I10
[2019-10-02] MEDS ORDERED: METOPROLOL TARTRATE 25 MG TAB PO ONE (01:38)
[2019-10-02] MEDS: MAGNESIUM SULFATE / D5W 1 GM/100 ML BAG IV SCH ×2 (02:11→03:57)
[2019-10-02] MEDS: ACETAMINOPHEN 500 MG TAB PO SCH ×3 (05:45→20:32)
[2019-10-02] MEDS ORDERED: LACTATED RINGER'S 1,000 ML IV SCH (06:00)
[2019-10-02 06:06] LABS: Hematocrit (blood only) 28.8 % (37-47); Hemoglobin 9.6 g/dL (12.0-16.0); Mean Corpuscular Hemoglobin 30.3 pg (25-34); Mean Corpuscular Hgb Conc 33.3 g/dL (32-36); Mean Corpuscular Volume 90.9 fL (80-100); Mean Platelet Volume 10.4 fL (7.4-10.4); Platelet Count 237 K/uL (130-400); RDW Coefficient of Variation 12.8 % (11.5-14.5); RDW Standard Deviation 42.6 fL (36.4-46.3); Red Blood Count 3.17 M/uL (4.2-5.4); White Blood Count 11.22 K/uL (4.8-10.8)
[2019-10-02 06:32] LABS: BUN Creatinine Ratio 12.7 (10-20); Calcium 7.5 mg/dl (8.5-10.1); Creatinine Clr Calc Pharmacy 48.9 ml/min; Est GFR (African American) 57.6; Est GFR (Non-African American) 49.7; Potassium 4.1 mmol/L (3.5-5.1)
--- NOTE | 2019-10-02 06:34 | XRay Report ---
XR knee LT 1 or 2V routine HISTORY: 69 years-old Female s/p fall acute left knee pain status post fall COMPARISON: Left knee radiographs 10/01/2019 TECHNIQUE: 2 views of the left knee FINDINGS: Left knee total joint arthroplasty and patella resurfacing. Decreasing amount of postsurgical soft ti ssue swelling with deep tissue air. Anterior midline skin sammy redemonstrated. No acute fracture, dislocation or opaque foreign body. IMPRESSION: 1. No acute fracture or dislocation. 2. Total joint arthroplasty without evidence of complication. ACT 112: Negative or not required by law. The above report was generated using voice recognition software. It may contain grammatical, syntax o r spelling errors. Electronically signed by: Kenneth Mccloud M.D. 10/02/2019 6:33 AM
[2019-10-02] MEDS: ASCORBIC ACID 500 MG TAB PO SCH ×2 (08:52→17:54)
[2019-10-02] MEDS: DOCUSATE SODIUM 100 MG CAP PO SCH ×2 (08:52→20:32)
[2019-10-02] MEDS: ASPIRIN 81 MG ECTAB PO SCH ×2 (08:52→20:32)
[2019-10-02] MEDS: FERROUS GLUCONATE 324 MG TAB PO SCH ×2 (08:53→17:54)
[2019-10-02] MEDS: MULTIVITAMIN TAB PO SCH (08:53)
[2019-10-02] MEDS: ATORVASTATIN 40 MG TAB PO SCH (08:54)
[2019-10-02] MEDS: METOPROLOL TARTRATE 25 MG TAB PO SCH ×2 (08:55→20:32)
[2019-10-02] MEDS ORDERED: LOSARTAN POTASSIUM 50 MG TAB PO SCH (09:00)
--- NOTE | 2019-10-02 09:50 | Progress Notes ---
DATE: 10/02/2019 SUBJECTIVE: A 69-year-old white female postop day 1 from left knee replacement. She is doing pretty well this morning. She did have an episode last night; she got confused and fell in the bathroom. She fell on her left knee. She was evaluated. Her dressing was taken down. There are no signs of wound dehiscence. Her pain has not changed. X-ray was negative for fracture. She is doing better this morning. She is awake, alert and oriented. Pain is controlled. No chest pain or shortness of breath. Not feeling dizzy or lightheaded. OBJECTIVE: VITAL SIGNS: Temperature 36.3. Vital signs are stable. GENERAL: Shows a pleasant, middle-aged female. She is sitting up in bed and talking to her daughter. Looks comfortable. LUNGS: Clear to auscultation. HEART: Regular rate and rhythm. ABDOMEN: Soft, nontender, nondistended. EXTREMITIES: Grossly neurovascularly intact except as follows: Examination of the left leg reveals the dressing to be clean, dry and intact. There is no drainage. I checked her incision site and it is well approximated. Leg is well aligned. She can do a good straight leg raise. She can dorsiflex and plantarflex her foot appropriately. X-RAYS: X-rays of the left knee from last evening were reviewed. It shows a cemented posterior stabilized total knee arthroplasty. There are no signs of problems. No signs of fracture. The patella was appropriately positioned. LABORATORY DATA: Hemoglobin 9.6. Hematocrit 28.8. Electrolytes are stable. ASSESSMENT: A 69-year-old white female postoperative day 1 from a left knee replacement, doing pretty well. She did have this fall last night. There are no signs of any significant injury. X-rays are negative for fracture. She can do a good straight leg raise and her extensor mechanism is intact. PLAN: 1. DVT prophylaxis including thigh-high TEDs, SCDs, and aspirin twice a day. 2. PT/OT. She can weightbear as tolerated. She does not need the knee immobilizer. 3. Pain control, doing pretty well with current pain regimen. 4. Disposition: Plan to discharge to home and her daughter is a physical therapist and she is going to do therapy. She also has a nurse who is her daughter, who will assist in her care.
--- NOTE | 2019-10-02 09:53 | Anesthesiology Progress Note ---
Date of Service October 02, 2019 Anesthesia Post Procedure Vital Signs Vital Signs: Temp Pulse Pulse Resp BP BP Pulse Ox 10/02/19 06:54 36.3 C L 63 18 130/73 94 10/02/19 03:59 36.6 C 66 16 144/74 H 95 10/02/19 02:12 81 154/73 H 10/02/19 01:36 98 H 164/75 H 10/02/19 00:45 152/73 H 10/02/19 00:40 36.8 C 115 H 18 177/73 H 96 10/02/19 00:00 36.4 C L 117 H 18 168/76 H 97 10/01/19 19:34 36.4 C L 68 16 136/79 98 10/01/19 17:16 36.2 C L 10/01/19 14:28 36.1 C L 69 16 119/74 98 10/01/19 14:08 35.7 C L 10/01/19 13:34 36.1 C L 72 16 122/69 100 10/01/19 13:13 36.2 C L 67 16 128/74 97 10/01/19 12:38 36.2 C L 10/01/19 12:31 35.4 C L 96 H 16 155/78 H 96 10/01/19 12:08 35.6 C L 96 H 18 150/78 H 97 10/01/19 11:28 36.3 C L 100 H 16 129/73 98 10/01/19 11:09 36.7 C 96 H 16 138/67 97 10/01/19 10:55 97 H 16 139/59 L 96 10/01/19 10:45 36.7 C 98 H 16 139/64 98 10/01/19 10:35 103 H 16 139/68 98 10/01/19 10:25 103 H 18 133/58 L 100 10/01/19 10:18 36.0 C L 107 H 18 128/54 L 98 Notes Mental Status: alert / awake / arousable and participated in evaluation Nausea / Vomiting: adequately controlled Pain: adequately controlled Airway Patency, RR, SpO2: stable & adequate BP & HR: stable & adequate Hydration State: stable & adequate Neuraxial Anesthesia: was administered and sensory block resolved Anesthetic Complications: no major complications apparent and Pt Satisfied with anesthetic care
--- NOTE | 2019-10-02 11:47 | Electrocardiogram Report ---
Test Reason : Blood Pressure : / mmHG Vent. Rate : 104 BPM Atrial Rate : 104 BPM P-R Int : 168 ms QRS Dur : 072 ms QT Int : 332 ms P-R-T Axes : 060 017 034 degrees QTc Int : 436 ms Sinus tachycardia Abnormal ECG When compared with ECG of 02-SEP-2019 10:03, Nonspecific T wave abnormality now evident in Anterolateral leads Confirmed by Mj Feliciano ([id number]) on 10/02/2019 11:46:48 AM Referred By: Malik Acevedo Confirmed By:Dewayne Feliciano
--- NOTE | 2019-10-02 13:31 | CT Scan Report ---
CT head/brain wo con CLINICAL HISTORY: Head trauma. Change in mental status COMPARISON STUDY: No previous studies for comparison. TECHNIQUE: Axial CT of the brain is performed from the vertex to the skull base. IV contrast was not administered for this examination. A dose lowering technique was utilized adhering to the principles of ALARA. CT DOSE: 537.48 mGy.cm FINDINGS: No intra or extra-axial mass lesions are visualized. There is no CT evidence of acute cortical infarc tion. There is no evidence of midline shift. There is no acute hemorrhage. No calvarial fractures ar e visualized. There are minor white matter hypodensities likely on a small vessel basis. There is no evidence of pathologic ventricular dilatation. There is no evidence of acute sinusitis IMPRESSION: No acute intracranial findings ACT 112: Negative or not required by law. Electronically signed by: Terell Tejeda M.D. 10/02/2019 1:29 PM
--- NOTE | 2019-10-02 15:32 | Hospitalist Progress Note ---
Date of Service October 02, 2019 Assessment & Plan (1) Status post fall: Patient seen status post slip and fall while on the toilet seat trying to get up. No signs of orthostasis. No signs of head trauma. No significant injury to left total knee arthroplasty Patient is much more confused now. She did have some left facial droop and tongue deviation which her had said he felt was her baseline but later when the daughter came bedside she felt that this was a marked difference from baseline. A CT scan of the head was performed which did not have any acute findings. MRI is contraindicated due to sammy at the incision site. Overall this is likely a delirium picture but I cannot rule out stroke given inability to perform an MRI. The family was very upset by the change in the patient's behavior. I did explain that delirium generally works itself out once a return to home an normalcy is achieved but given that she is having such a dramatic change today from yesterday and with concern for safety with a fall overnight, that it would be reasonable to keep her one more night for observation. This was communicated to surgery. (2) Acute kidney injury: resolved Resume Cozaar and meloxicam am Serial BMP. (3) Hyperlipidemia: Continue atorvastatin 40 mg daily (4) Hypomagnesemia: Magnesium level 1.6, with associated sinus tachycardia Replaced (5) Sinus tachycardia: Sinus tachycardia/hypertension- Replace magnesium sulfate as noted above. Resume losartan tomorrow Continue metoprolol tartrate 25 mg p.o. twice daily with hold parameters. (6) Hypertension: See above Admission and Anticipated Discharge Date Admission Date: October 01, 2019 Subjective Ms. Holt is having some confusion this morning. She had a fall overnight although it's unclear what exactly transpired though it does not seem that she hit her head. Her family was concerned as this is quite a change from her baseline. Patient was very upset at the prospect of staying for another night but her family is pretty concerned about taking her home. ROS Constitutional: no chills, aches, sweats or fever Respiratory: no sob,cough, sputum, or wheezing Cardiac: no chest pain, palpitations, edema, orthopnea or lightheadedness GI: no abdominal pain, nausea, vomiting, diarrhea or constipation : no dysuria or hesitancy Extremities: no joint pain or weakness Skin: no rash All other systems reviewed and negative Physical Exam Physical Exam: General: tearful Eyes: normal inspection, PERLL Respiratory: chest non tender, clear to auscultation, normal breath sounds, no respiratory distress, no accessory muscle use Cardiac: regular rate and rhythm, no rub or gallop, no murmur, no edema, no jvd GI/: active bowel sounds, no abd pain or tenderness, soft, non distended Extremities: normal range of motion, normal strength, non tender Neuro/Psych: alert and oriented x 3 with confusion, anxious and agitated, left facial droop and tongue deviation other production counter intact, no drift Skin: normal color, dry Results & Data Results & Data ([facility]) Vital Signs (Past 12 Hours) Vital Signs Temp Pulse Pulse Resp BP Pulse Ox 10/02/19 15:00 36.3 C L 72 16 171/80 H 98 10/02/19 11:00 36.4 C L 68 18 151/75 H 96 10/02/19 06:54 36.3 C L 63 18 130/73 94 10/02/19 03:59 36.6 C 66 16 144/74 H 95 PG Care Time/CCT Total # of Minutes Spent Total Time Spent with Patient: Total time spent is greater than 50% in coordination of care (as documented) at patient's floor/unit and/or counseling patient: Coding Level of Care Code 68567 Subseq Hosp Care Lvl 3 Diagnoses Status post fall Z91.81 Acute kidney injury N17.9 Hyperlipidemia E78.5 Hypomagnesemia E83.42 Sinus tachycardia R00.0 Hypertension I10
[2019-10-02] MEDS ORDERED: LORazepam 0.5 MG/1 ML VIAL IV PRN (19:54)
[2019-10-02] MEDS: DOXEPIN HCL 25 MG CAPSULE PO SCH (20:32)
[2019-10-02] MEDS: SENNA 8.6 MG TAB PO SCH (20:32)
[2019-10-02] MEDS: TRAMADOL HCL 50 MG TABLET PO PRN (22:33)
[2019-10-03 01:39] LABS: Appearance Urine Clear (Clear); Bacteria Urine Automated Negative (Negative); Bilirubin Urine Negative (Negative); Blood Urine 1+ (Negative); Color Urine Yellow; Glucose Urine UA Negative (Negative); Ketones Urine Trace (Negative); Leukocyte Esterase Urine Trace (Negative); Nitrite Urine Negative (Negative); Protein Urine Negative (Negative); RBC Urine Automated 0-4 /hpf (0-4); Specific Gravity Urine 1.007 (1.000-1.030); Urobilinogen Urine Negative (Negative)
[2019-10-03] MEDS: ACETAMINOPHEN 500 MG TAB PO SCH (05:32)
[2019-10-03 06:17] LABS: Hematocrit (blood only) 30.6 % (37-47); Hemoglobin 9.8 g/dL (12.0-16.0); Mean Corpuscular Hemoglobin 29.6 pg (25-34); Mean Corpuscular Volume 92.4 fL (80-100); Mean Platelet Volume 10.6 fL (7.4-10.4); Platelet Count 253 K/uL (130-400); RDW Coefficient of Variation 13.1 % (11.5-14.5); RDW Standard Deviation 44.5 fL (36.4-46.3); Red Blood Count 3.31 M/uL (4.2-5.4); White Blood Count 10.46 K/uL (4.8-10.8)
[2019-10-03 07:01] LABS: BUN Creatinine Ratio 11.4 (10-20); Calcium 8.9 mg/dl (8.5-10.1); Creatinine Clr Calc Pharmacy 56.3 ml/min; Est GFR (African American) 68.3; Potassium 4.1 mmol/L (3.5-5.1)
--- NOTE | 2019-10-03 08:07 | Progress Notes ---
DATE: 10/03/2019 SUBJECTIVE: A 69-year-old white female postop day 2 from a left knee replacement. She is doing well. Had a bit of confusion yesterday enrollment eligibility representative and some during the day. She had an extensive workup which has all been negative. Doing much better today. Pain is controlled. No chest pain or shortness of breath. OBJECTIVE: VITAL SIGNS: Temperature 36.5. Vital signs stable. GENERAL: Shows a pleasant, middle-aged female. She is sitting up in bed and looks good. She is awake, alert, and oriented. EXTREMITIES: Examination of the left leg reveals the leg to be well aligned. Just a little bit of bloody drainage on her dressing. She is neurologically intact. LABORATORY DATA: Hemoglobin 9.8. Hematocrit 30.6. Electrolytes are stable. ASSESSMENT: A 69-year-old white female postop day 2 from a left knee replacement, doing pretty well. A little bit of confusion postoperatively, but doing much better. Workup was negative. PLAN: 1. DVT prophylaxis including thigh-high TEDs, SCDs, and aspirin twice a day. 2. PT/OT. Weight bear as tolerated. Left total knee protocol. 3. Pain control, doing well with current pain regimen. 4. Disposition: Plan to discharge to home and her daughter is going to do her therapy at home.
[2019-10-03] MEDS ORDERED: LOSARTAN POTASSIUM 50 MG TAB PO SCH (09:00)
--- NOTE | 2019-10-03 09:00 | Hospitalist Progress Note ---
Date of Service October 03, 2019 Assessment & Plan (1) Status post fall: Patient seen status post slip and fall while on the toilet seat trying to get up. No signs of orthostasis. No signs of head trauma. No significant injury to left total knee arthroplasty (2) Delirium: On 10/01 Patient was very confused. She did have some left facial droop and tongue deviation which her had said he felt was her baseline but later when the daughter came bedside she felt that this was a marked difference from baseline. A CT scan of the head was performed which did not have any acute findings. MRI is contraindicated due to sammy at the incision site. 10/02 patient was improved, no further facial droop noted. Her reported he felt she was back to her usual self. We discussed hospital delirium. She is concerned about her other knee procedure which will be done in the near future. We discussed delirium precautions. (3) Acute kidney injury: resolved Resume Cozaar and meloxicam am (4) Hyperlipidemia: Continue atorvastatin 40 mg daily (5) Hypomagnesemia: Magnesium level 1.6, with associated sinus tachycardia Replaced (6) Sinus tachycardia: Sinus tachycardia/hypertension- Replace magnesium sulfate as noted above. Resume losartan Continue metoprolol tartrate 25 mg p.o. twice daily with hold parameters. (7) Hypertension: See above (8) Acute blood loss anemia: Hgb 9.8, down from 12. No symptoms, no indication for transfusion (9) Abnormal urinalysis: 1+ on U/A but not evident on microscopy Discussed with patient and she will follow up with her pcp about possible repeating a U/A at her next visit No apparent infection Thank you for involving us in the care of this patient. She is medically stable for discharge. Ms. Holt should follow up with her pcp in about a week. Admission and Anticipated Discharge Date Admission Date: October 01, 2019 Subjective Ms. Holt is much more herself this morning. Her is at bedside and feels she is back to her usual self. She says that she has no memory of yesterday. Nursing notes report some mild confusion over the night. We discussed hospital delirium. Patient and her feel ready to get home ROS Constitutional: no chills, aches, sweats or fever Respiratory: no sob,cough, sputum, or wheezing Cardiac: no chest pain, palpitations, edema, orthopnea or lightheadedness GI: no abdominal pain, nausea, vomiting, diarrhea or constipation : no dysuria or hesitancy Extremities: no joint pain or weakness Skin: no rash All other systems reviewed and negative Physical Exam Physical Exam: General: no distress Eyes: normal inspection, PERLL Respiratory: chest non tender, clear to auscultation, normal breath sounds, no respiratory distress, no accessory muscle use Cardiac: regular rate and rhythm, no rub or gallop, no murmur, no edema, no jvd GI/: active bowel sounds, no abd pain or tenderness, soft, non distended Extremities: normal range of motion, normal strength, non tender Neuro/Psych: alert and oriented x 3, normal mood and affect, CN II - XII intact Skin: normal color, dry Results & Data Results & Data ([facility]) Vital Signs (Past 12 Hours) Vital Signs Temp Pulse Pulse Resp BP Pulse Ox 10/03/19 07:05 36.8 C 78 17 153/90 H 97 10/02/19 23:59 36.5 C 68 16 134/73 96 PG Care Time/CCT Total # of Minutes Spent Total Time Spent with Patient: Total time spent is greater than 50% in coordination of care (as documented) at patient's floor/unit and/or counseling patient: Coding Level of Care Code 38006 Subseq Hosp Care Lvl 3 Diagnoses Status post fall Z91.81 Delirium R41.0 Acute kidney injury N17.9 Hyperlipidemia E78.5 Hypomagnesemia E83.42 Sinus tachycardia R00.0 Hypertension I10 Acute blood loss anemia D62 Abnormal urinalysis R82.90
[2019-10-03] MEDS: METOPROLOL TARTRATE 25 MG TAB PO SCH (09:08)
[2019-10-03] MEDS: MULTIVITAMIN TAB PO SCH (09:09)
[2019-10-03] MEDS: DOCUSATE SODIUM 100 MG CAP PO SCH (09:09)
[2019-10-03] MEDS: FERROUS GLUCONATE 324 MG TAB PO SCH (09:10)
[2019-10-03] MEDS: ASCORBIC ACID 500 MG TAB PO SCH (09:10)
[2019-10-03] MEDS: ATORVASTATIN 40 MG TAB PO SCH (09:11)
[2019-10-03] MEDS: ASPIRIN 81 MG ECTAB PO SCH (09:11)
--- NOTE | 2019-10-11 16:01 | Discharge Summary ---
Date of Service October 11, 2019 Admission HPI Per Admitting Provider Documented in the H & P Admission Exam (Per Admitting) Constitutional Documented in the H & P Discharge Data Consultations 10/01/19 12:01 Consult Case Management - Discharge Planning Routine 10/01/19 23:57 Consult Hospitalist Routine Procedures Performed Operation Date: 10/01/19 08:50 Actual Procedures p Left Total Knee Arthroplasty.(Left) - Malik Acevedo MD Hospital Course (1) Status post total left knee replacement: This patient is a a69 y/o female dmitted on 10/01/19 and underwent total knee replacement. She tolerated the procedure well and there were no complications. Transferred to the PACU post op and later to the orthopedic floor for further care. She was given ancef for antibiotic prophylaxis. She was also given JOSHUA stockings, SCDs, and aspirin for DVT prophylaxis. Hemoglobin, hematocrit, and vital signs were monitored during her hospital stay and remained stable. Did not require any blood transfusions. She did have some delirium post op and did have a fall. Xrays of her knee were negative and she did not have any acute injury to the knee. She was followed by the hospitalist service, she did have a ct scan of her head which was negative. Her delirium did resolve prior to discharge. By post op day #2 the patient was tolerating a regular diet, pain was reasonably controlled with oral pain medicine, and she was participating in physical therapy. On post op day #2 the patient was discharged home. She was given printed discharge instructions including prescriptions for extra strength tylenol, aspirin, iron supplement, and tramadol. Continue physical therapy, weight bearing as tolerated. Continue JOSHUA stockings. Follow up approximately 2 weeks post op or sooner if there are problems or concerns. Coding Level of Care Code None Diagnoses Status post total left knee replacement Z96.652
== END 2019-10-03 10:49 | disposition home or self-care (01) ==
LOC: ASU 06:39 → 3E 06:39

== ENCOUNTER 2019-12-27 05:10 | Observation (INO) ==
--- NOTE | 2019-11-27 15:07 | PAT Medication Instructions ---
Medication Instructions Date of Service November 27, 2019 Home Medications Medication Instructions Recorded Wheeled Walker #1 ea 07/18/19 Wheeled Walker #1 ea 07/18/19 atorvastatin 40 mg tablet 40 mg PO QAM doxepin 25 mg capsule 25 mg PO HS betamethasone dipropionate 1 applic TOPICAL BID PRN losartan 100 mg PO QAM meloxicam 15 mg PO QAM ASK your surgeon for instructions meloxicam 15 mg PO QAM STOP taking 24 hours before surgery betamethasone dipropionate 1 applic TOPICAL BID PRN DO NOT take the morning of surgery losartan 100 mg PO QAM Take morning of surgery With a small sip of water, OTHERWISE NOTHING TO EAT OR DRINK AFTER MIDNIGHT: atorvastatin 40 mg tablet 40 mg PO QAM Take evening before surgery doxepin 25 mg capsule 25 mg PO HS Other Notes If you have any questions please call us at [phone] or [phone] or [phone] or [phone]
--- NOTE | 2019-11-28 11:35 | Anesthesiology Consultation ---
Date of Service November 28, 2019 Assessment & Plan (1) Encounter for pre-operative examination: Chart Review Chart Review: Acceptable Risk for Surgery (pending preop Covid testing ) and Patient seen in Pre Admission Testing Pt states with last TKA- patient remembers getting up to room and moving toes but afterwards had complete memory loss, confusion, hallucinations, combativeness post op. Did get out of bed and fell- pulled out tubes. Day 2 post op- patient began to become less confused. Pt did continue with seeing bug on denson for three days. Dr. Acevedo unsure if due to Oxycontin. Pt was changed to Tramadol at discharged- tolerated Tramadol. Pt very anxious to get surgery and anesthesia again. Per PAT appt on 11/28/19, resides in [facility]. No recent travel. No known Covid positive contacts or Covid related symptoms. Educated patient to follow up with surgeon's office regarding Covid testing. Educated on importance of self quarantining, social distancing and wearing mask in public both for the patient and household contacts. Left TKA 10/01/19 = Done under SAB at L3-4 with 1 attempt. No anesthesia issues noted per record Teaching & Discussion Pre-Anesthesia Teaching/Discussion Notes: Instructed NPO after midnight before surgery,except medications with 15 cc of water. Medication instructions provided according to the PAT guidelines. History Surgery Operation Date: 12/27/19 09:20 Proposed Procedures p Right Total Knee Arthroplasty - Malik Acevedo MD Height/Weight Height: 5 ft 4 in Weight: 78.9 kg Allergies Allergy/AdvReac Type Severity Reaction Status Date / Time Penicillins Allergy Unknown unknown - Verified 11/28/19 10:49 as a child oxycodone [From OxyContin] AdvReac Severe Hallucinations, Verified 11/28/19 11:45 memory loss, combativeness and confusion Medications Home Medications Medication Instructions Recorded Confirmed Last Taken atorvastatin 40 mg tablet 40 mg PO QAM 03/04/19 11/20/19 10/01/19 05:30 doxepin 25 mg capsule 25 mg PO HS 03/04/19 11/20/19 09/30/19 22:00 Wheeled Walker #1 ea 07/18/19 07/18/19 Unknown Wheeled Walker #1 ea 07/18/19 07/18/19 Unknown betamethasone dipropionate 1 applic TOPICAL BID PRN 08/29/19 11/20/19 09/29/19 losartan 100 mg PO QAM 08/29/19 11/20/19 09/30/19 08:00 meloxicam 15 mg PO QAM 08/29/19 11/20/19 09/21/19 amoxicillin 500 mg tablet 2,000 mg PO ONCE #4 tab 11/28/19 Unknown Past Medical History Medical History (Updated 11/28/19 @ 12:08 by Denise Echevarria PA-C) Cardiac murmur Normal valves per echo 2014. No significant murmur noted on 11/28/19 PAT exam GERD (gastroesophageal reflux disease) rarely -- diet regulated Hyperlipidemia Hypertension Psoriasis Exercise / Class Metabolic Activity II 4-5 Yardwork/Stairs/Walk up hill (one flight of stairs - no chest pain or SOB ) Past Family History Family History (Updated 11/20/19 @ 11:41 by Shwetha Watkins RN) Brother Family history of esophageal cancer Other No family history of adverse response to anesthesia Past Surgical History Surgical History (Updated 11/20/19 @ 11:41 by Shwetha Watkins RN) History of anesthesia reaction HALLUCINATED AFTER SURGERY (UNSURE RELATED TO ANESTHESIA OR PAIN MEDICATION GIVEN) History of colonoscopy History of dental surgery History of tonsillectomy History of total knee replacement LEFT Past Anesthesia History No Hx of Anesthesia Complications (with exception to most recent L TKA - halluncations, confusion, memory loss ) and No Family Hx of Anesthesia Complications History of PONV No Hx of Motion Sickness and History of PONV Social History Smoking Status: Former smoker tobacco type: cigarettes Do You Dip or Chew Tobacco: No Smoking End Date: 28 YEARS AGO Hx Alcohol Use: Yes Alcohol type: beer alcohol intake frequency: a few times a month substance use type: does not use Review of Systems Patient denies chest pain, shortness of breath, dyspnea on exertion, cough, wheezing, palpitations. No hx of seizures, stroke, MN, apnea/snoring. No hx of blood clots or blood transfusions Physical Exam Vital Signs VITALS BP 182/82 (usually well controlled) P 73 TEMP 98.1 SP02 99% RESP 16 Constitutional no acute distress ENMT Mouth: no TMJ clicking Thyromental Distance: > or= 3.5 Finger Breadths (4.0) Mallampati Class: II Neck neck extension not limited Respiratory normal respiratory effort; no respiratory distress Auscultation: lungs clear to auscultation bilaterally; no wheezes Cardiovascular Rate/Rhythm: regular rate and regular rhythm Heart Sounds: no murmur Vessels: no carotid bruit Musculoskeletal Spine: no pain with cervical ROM Neurologic moves all extremities Psychiatric Orientation: alert Testing Laboratory Results 11/28/19 12:04 11/28/19 12:04 PT 10.5 Seconds (9.0-12.0) 11/28/19 12:04 INR 1.0 (0.9-1.1) 11/28/19 12:04 APTT 29.9 Seconds (21.0-31.0) 11/28/19 12:04 Blood Type O Negative 11/28/19 12:04 Antibody Screen NEGATIVE 11/28/19 12:04 Anemia chronic since September 2019 and improving Electrocardiogram Date: 11/28/19 Findings: + NSR @ (77) Normal EKG Chest X-Ray Date: 09/02/19 Findings: + NAD Echocardiogram Date: 07/11/14 EF: 65% LV Function: normal RWMA: + none Other Findings: + diastolic dysfunction (Grade I); no LVH Valvular Disease: + no significant valvular disease Mild pulmonary HTN (PASP 36 mmHg).
[2019-11-28 13:11] LABS: Basophils # (auto) 0.02 K/uL (0-0.2); Basophils % (auto) 0.3 %; Eosinophils # (auto) 0.48 K/uL (0-0.5); Eosinophils % (auto) 6.6 %; Hematocrit (blood only) 34.8 % (37-47); Hemoglobin 11.1 g/dL (12.0-16.0); Immature Granulocytes # (auto) 0.01 K/uL (0.00-0.02); Immature Granulocytes % (auto) 0.1 %; Lymphocytes # (auto) 1.92 K/uL (1.2-3.4); Lymphocytes % (auto) 26.6 %; Mean Corpuscular Hemoglobin 30.3 pg (25-34); Mean Corpuscular Hgb Conc 31.9 g/dL (32-36); Mean Corpuscular Volume 95.1 fL (80-100); Mean Platelet Volume 9.9 fL (7.4-10.4); Monocytes # (auto) 0.36 K/uL (0.11-0.59); Neutrophils # (auto) 4.43 K/uL (1.4-6.5); Neutrophils % (auto) 61.4 %; Platelet Count 360 K/uL (130-400); RDW Coefficient of Variation 14.4 % (11.5-14.5); RDW Standard Deviation 49.5 fL (36.4-46.3); Red Blood Count 3.66 M/uL (4.2-5.4); White Blood Count 7.22 K/uL (4.8-10.8)
[2019-11-28 13:26] LABS: Partial Thromboplastin Ratio 1.1; Partial Thromboplastin Time 29.9 Seconds (21.0-31.0); Prothrombin Time 10.5 Seconds (9.0-12.0)
[2019-11-28 15:14] LABS: BUN Creatinine Ratio 15.7 (10-20); C Reactive Protein 0.48 mg/dl (0-0.29); Calcium 9.5 mg/dl (8.5-10.1); Creatinine Clr Calc Pharmacy 51.9 ml/min; Est GFR (African American) 62.2; Est GFR (Non-African American) 53.7; Potassium 4.7 mmol/L (3.5-5.1)
--- NOTE | 2019-11-29 06:03 | Electrocardiogram Report ---
Test Reason : Blood Pressure : / mmHG Vent. Rate : 077 BPM Atrial Rate : 077 BPM P-R Int : 150 ms QRS Dur : 076 ms QT Int : 390 ms P-R-T Axes : 057 046 035 degrees QTc Int : 441 ms Normal sinus rhythm Normal ECG When compared with ECG of 02-OCT-2019 00:38, Nonspecific T wave abnormality no longer evident in Anterolateral leads Confirmed by Jason Roe ([id number]) on 11/29/2019 6:03:13 AM Referred By: Malik Acevedo Confirmed By:Jason Roe
--- NOTE | 2019-12-21 13:03 | History and Physical Report ---
DATE OF ADMISSION: 12/27/2019 CHIEF COMPLAINT: Persistent progressive right knee pain and discomfort. HISTORY OF PRESENT ILLNESS: The patient is a 69-year-old female who is now 2-1/2 months out from a left knee replacement. She has got a long history of knee problems that I have been following for over the years, treating with injections. This has become less successful over time. She has done quite well from the left knee pain, now limited by right knee pain and discomfort. She has global pain. The more she walks, the more it hurts and the more she limps. Injections have been minimally helpful lately. PAST MEDICAL HISTORY: 1. Hypertension. 2. Elevated cholesterol. 3. Osteoarthritis. PAST SURGICAL HISTORY: Includes, 1. Tonsillectomy. 2. Dental surgery. 3. Left knee replacement done on 10/01/2019. ALLERGIES: PENICILLIN, REACTIONS UNKNOWN. CURRENT MEDICINES: Include, 1. Meloxicam 15 mg. 2. Losartan 100 mg a day. 3. Atorvastatin 40 mg a day. 4. Doxepin 25 mg a day. SOCIAL HISTORY: Significant for a 69-year-old female. She is . She has a daughter who works as a physical therapist for [employer] and a daughter who is a nurse. FAMILY HISTORY: Noncontributory. REVIEW OF HISTORY: Negative for diabetes, neurologic problem, vascular problems or bleeding disorders. No chest pain or shortness of breath. No history of DVT or PE. No known bleeding problems. PHYSICAL EXAMINATION GENERAL: Shows a pleasant, middle-aged female. Looks to be in good health. HEENT: Benign. NECK: Supple, no lymphadenopathy. LUNGS: Clear to auscultation. HEART: Has a regular rate and rhythm. ABDOMEN: Soft, nontender, nondistended. EXTREMITIES: Grossly neurovascularly intact except as follows: Examination of the right knee reveals the patient ambulates independently. She has got slight varus alignment to her knee. She is tender over the medial joint line. Small knee effusion. Range of motion about 5 degrees short of full extension to 120 degrees of flexion. There is no instability. No pain with hip motion. Examination of the left knee reveals a well-healed incision. Mild swelling. Range of motion 0-120. No instability. X-RAYS: X-rays of the right knee revealed advanced right knee DJD. She has got complete loss of medial joint space. She has got osteophytes primarily off the medial side of her knee including the femoral condyle and the medial tibial plateau. The left knee replacement looks to be in good position. ASSESSMENT: A 69-year-old white female now 2-1/2 months out from a left knee replacement with persistent progressive right knee pain and osteoarthritis. She has failed conservative treatment. She would like to proceed with right knee replacement. PLAN: We will take her to the operating room and do right total knee replacement. The risks and benefits of this procedure were explained to the patient and include but not limited to DVT, PE, , infection, neurological injury, vascular injury, bleeding problem, pain, limited range of motion, stiffness, failure to relieve her symptoms, incomplete relief of symptoms, need for further surgery in the future, fracture, leg length inequality, etc. The patient understands and desires to proceed. Informed consent was obtained. She did not do well with the oxycodone last time. We will try and use tramadol to avoid any confusion issues. She is planning to be discharged to home and her daughter, a therapist, can assist in her care as well as her other daughter who is a nurse.
[2019-12-27] MEDS ORDERED: ceFAZolin 2000MG 2,000 MG/15 ML SYR IV SCH (06:00)
[2019-12-27] MEDS ORDERED: FAMOTIDINE 20 MG TAB PO SCH (06:00)
[2019-12-27] MEDS ORDERED: BUPIVACAINE LIPOSOME/PF 266 MG, BUPIVACAINE/EPINEPHRINE 50 ML, SODIUM CHLORIDE 0.9% 30 ... INFIL SCH (06:00)
[2019-12-27] MEDS ORDERED: TRANEXAMIC ACID 1,000 MG **IV Intra-op IV SCH (06:00)
[2019-12-27] MEDS ORDERED: LR 60ML/HR IV SCH (06:00)
[2019-12-27] MEDS ORDERED: ACETAMINOPHEN 500 MG TAB PO SCH (06:00)
[2019-12-27] MEDS ORDERED: METOCLOPRAMIDE HCL 10 MG TABLET PO SCH (06:00)
[2019-12-27] MEDS ORDERED: LR 500ML BOLUS, THEN 15ML/HR IV SCH (06:00)
[2019-12-27] MEDS ORDERED: GABAPENTIN 300 MG CAP PO SCH (06:00)
[2019-12-27] MEDS ORDERED: LIDOCAINE HCL 2% 2 ML VIAL/AMP(20MG/ML) INFIL ONE (06:28)
[2019-12-27] MEDS ORDERED: PROPOFOL IV EMULSION 10 MG/ML 20 ML VIAL IV ONE (06:28)
[2019-12-27] MEDS ORDERED: fentaNYL citrate 100 MCG/2 ML VIAL ONE (06:29)
[2019-12-27] MEDS ORDERED: MIDAZOLAM HCL 1 MG/ML 2ML VIAL ONE (06:29)
[2019-12-27] MEDS ORDERED: BUPIVACAINE 0.5 % 5 MG/1 ML PF 10ML VIAL ONE (06:33)
[2019-12-27] MEDS ORDERED: BUPIVACAINE/EPINEPHRINE 0.25% 1:200,000 30 ML VIAL ONE (06:33)
[2019-12-27] MEDS ORDERED: DEXAMETHASONE SOD INJ 4 MG/ML VIAL ONE ×2 (06:33→06:39)
[2019-12-27] MEDS ORDERED: ONDANSETRON INJ 2 MG/ML 2 ML VIAL ONE (06:39)
[2019-12-27] MEDS ORDERED: BUPIVACAINE LIPOSOME 1.3% 266 MG/20 ML VIAL ONE (06:43)
[2019-12-27] MEDS ORDERED: BUPIVACAINE 0.25% 30 ML VIAL ONE (06:43)
[2019-12-27] MEDS ORDERED: BACITRACIN INJ 50,000 UNIT VIAL ONE (06:43)
[2019-12-27] MEDS ORDERED: SODIUM CHLORIDE 0.9% PF 50 ML VIAL ONE (06:43)
[2019-12-27] MEDS ORDERED: EPINEPHrine INJ 1 MG/ML AMP ONE (06:43)
--- NOTE | 2019-12-27 06:50 | History & Physical Bridge Note ---
Date of Service December 27, 2019 History & Physical Bridge Note I have examined the patient, reviewed the History & Physical and in the interval since the performance of the History & Physical I have noted the following changes of clinical significance: no changes noted
[2019-12-27] MEDS ORDERED: PHENYLEPHRINE 100MCG/ML 5ML SYR ONE (07:42)
--- NOTE | 2019-12-27 08:29 | Post Operative Brief Note ---
PG Immediate Post Op with CF Date of Surgery December 27, 2019 Pre & Post Diagnosis Operation Date: 12/27/19 07:00 Pre-Op Diagnosis: Right Knee Degenerative Joint Disease Post-Op Diagnosis: Right Knee Degenerative Joint Disease I identified the patient and participated in the time-out.: Yes Procedure Operation Date: 12/27/19 07:00 Actual Procedures p Right Total Knee Replacement(Right) - Malik Acevedo MD Surgeon Malik Acevedo MD Coremaker Pipe Michael, PAC Estimated Blood Loss 50 Findings Consistent with Post-Op Diagnosis Fluids 1200 cc Specimens Specimen Description: Permanent Solution: A.) Right Knee Bone and Tissue Drains Curtis Catheter (clean/dry/intact; inserted by Man Rodriguez PA-C without any difficulties) Anesthesia Type Spinal MAC Complications none Disposition Accompanied Patient To Recovery: No Disposition: Recovery Room
[2019-12-27] MEDS ORDERED: fentaNYL citrate 100 MCG/2 ML VIAL IV PRN (08:46)
[2019-12-27] MEDS ORDERED: ePHEDrine sulfate 50 MG/ML AMP IV PRN (08:46)
[2019-12-27] MEDS ORDERED: ATROPINE SULFATE 0.1 MG/ML 10ML SYR IV PRN (08:46)
[2019-12-27] MEDS ORDERED: ONDANSETRON INJ 2 MG/ML 2 ML VIAL IV PRN ×2 (08:46→10:10)
--- NOTE | 2019-12-27 08:49 | Operative Report ---
Post Operative Report Pre & Post Diagnosis Operation Date: 12/27/19 07:00 Pre-Op Diagnosis: Right Knee Degenerative Joint Disease Post-Op Diagnosis: Right Knee Degenerative Joint Disease I identified the patient and participated in the time-out.: Yes Procedure Operation Date: 12/27/19 07:00 Actual Procedures p Right Total Knee Replacement(Right) - Malik Acevedo MD Surgeon Malik Acevedo MD Sales And Service Representative Michael, PAC Estimated Blood Loss 50 Findings Consistent with Post-Op Diagnosis Operative findings revealed advanced right knee DJD with extensive grade 4 [id number] and erosive changes in all 3 compartments most severe in the medial side. She had a moderate-sized joint effusion. Fluids 1200 cc. Specimens Right knee sent for pathology. Drains None. Anesthesia Type Spinal MAC Complications none Disposition Accompanied Patient To Recovery: No Disposition: Recovery Room Indications Patient is a 69-year-old female have been treating for years for bilateral knee pain discomfort and arthritic changes. Became less responsive to conservative treatment with a past year. She underwent a left knee replacement about 2 and half months ago and is done well from this. She elected proceed with right total knee arthroplasty. Description of Procedure Operative implants consist of: 1. Biomet Vanguard size 62.5 right posterior stabilized femoral component. 2. Biomet size 67 tibial tray. 3. 12 mm posterior stabilized polyethylene insert. 4. 28 x 8 all polypatella. The patient was taken to the operating room identified and placed on the operating table supine position. All contact areas were properly padded. IV antibiotics arrived by anesthesia team. Spinal anesthetic and abductor canal block had been provided in the holding area. A Curtis catheter was placed in sterile fashion. A right thigh turn was then placed in the right lower extremities and prepped and draped in usual sterile fashion. The right leg was elevated exsanguinated with use of an Esmarch and turns placed at 3 and 50 mmHg. An anterior approach of the right knee was then performed through a longitudinal incision centered over the patella. Sharp dissection was got through subcutaneous is down the extensor mechanism. Medial parapatellar arthrotomy incision was made. Some subperiosteal dissection was carried out medially. The fat pad was resected from beneath patella tendon. The lateral patellofemoral ligament was released. Patella was subluxated laterally and the knee was flexed. The osteophytes were taken off distal femur. The ACL PCL were then released in the distal femur and the tibia subluxated anteriorly. The external tibial alignment jig was then placed in the interface the tibia and adjusted 14 mm medially. Proximal tibial cut was made remove about 3 mm of bone from the medial side. The tibia sized to a size 67. Some osteophytes taken off medial and posterior medially. Attention drawn the femur. The distal femur was entered with a sharp drop with intramedullary canal was suction. A right 5 degree valgus cutting guide was placed but this femoral cutting block was pinned in place. Distal femoral cut was made to take an additional 3 mm bone off distal femur. The femur was then sized to a size 62.5. We did downsize this about a half a size. The AP cutting block was pinned parallel to the epicondylar axis which was 3 degrees of external rotation. Anterior cut, anterior chamfer, posterior cut, posterior chamfer cuts were made. Box cutting guide was placed in just slight lateral box cut was made. The knee was flexed. The remnants of the lateral and medial menisci were excised. The osteophytes were taken off the posterior aspect of the femur. A trial femoral component was placed. The tibial tray was pinned in maximum external rotation and the drill and stem punch were used to create defect in proximal to for the tibial tray. The knee was then trialed and the 12 mm insert fit most appropriately. Attention drawn the patella. The patella was cleaned of all soft tissues. Patella thickness measured 20 mm in thickness was cut down to 12. Size a size 28 patella. The lug holes were drilled for the 28 patella. The lateral osteophyte was removed. The patella button was placed. The knee was taken through range of motion patella tracked nicely with no thumbs test. Attention drawn to placing permanent components. All trial components were removed. Bone plug was placed in the distal femur limit blood loss. A double batch Palacos G cement was mixed. A Biomet Vanguard size 62.5 right posterior stabilized femoral component, a size 67 tibial tray, a 12 mm posterior stabilized polyethylene insert, and a 28 x 8 all polypatella were then cemented in place. Knee was brought out in full extension total cement hardened. Final cement check was then performed. The pericapsular tissues were injected with total 100 cc of combination of 20 cc of Exparel, 30 cc normal saline, 50 cc of quarter percent Marcaine with epinephrine. Patient did receive 1 g tranexamic acid. The tourniquet was then let down for final turn time 47 minutes. Hemostasis assured use electrocautery. Extensor mechanism closed with combination 1 PDS suture #1 Vicryl suture in [id number] fashion. Extensor mechanism checked found to be intact the subcutaneous tissue then closed with 2 Dexon suture in a buried interrupted fashion skin was closed skin sammy. The leg was then cleaned and dried and a sterile dressing composed Xeroform, 4 x 4's, sterile cast padding, Keny bandage were applied. The patient then transferred to the recovery room in stable condition. The patient tolerated procedure well and there were no complications. Man Rodriguez, my physician senior administrative assistant, was present for the entire procedure. His assistance was essential and required for appropriate patient positioning, prepping and draping, surgical exposure, performing the technical details of the operation, placement the implants, closure of the wound, and placement of the sterile bandage. I attest to the content of the Intraoperative Record and any orders documented therein. Any exceptions are noted below.
--- NOTE | 2019-12-27 08:59 | Anesthesiology Progress Note ---
Date of Service December 27, 2019 Anesthesia Post Procedure Vital Signs Vital Signs: Temp Pulse Pulse Resp BP Pulse Ox 12/27/19 08:55 36.3 C L 84 16 163/70 H 97 12/27/19 08:45 101 H 15 147/61 H 100 12/27/19 08:38 36.4 C L 101 H 16 143/59 H 100 12/27/19 05:20 37.1 C 119 H 20 186/93 H 98 Transfer of Care Handoff Completed per policy Notes Mental Status: alert / awake / arousable Patient Amnestic to Procedure: Yes Nausea / Vomiting: adequately controlled Pain: adequately controlled Airway Patency, RR, SpO2: stable & adequate BP & HR: stable & adequate Hydration State: stable & adequate Neuraxial Anesthesia: was administered and sensory block is resolving Anesthetic Complications: no major complications apparent
--- NOTE | 2019-12-27 10:01 | XRay Report ---
RIGHT KNEE 2 VIEWS History: Right total knee arthroplasty. Degenerative arthritis. Postop. FINDINGS: The patient is status post a right total knee arthroplasty. The hardware is intact. No frac ture or dislocation. Skin sammy are in place. IMPRESSION: Right total knee arthroplasty. No evidence for hardware complication. ACT 112: Negative or not required by law. Electronically signed by: Aleks Sanchez M.D. 12/27/2019 9:59 AM
[2019-12-27] MEDS ORDERED: MAGNESIUM HYDROXIDE SUSP 30 ML UDC PO PRN (10:10)
[2019-12-27] MEDS ORDERED: NALOXONE HCL 0.4 MG/1 ML VIAL/CARP IV PRN (10:10)
[2019-12-27] MEDS ORDERED: HYDROmorphone INJ 0.5 MG/0.5 ML SYR IV PRN (10:10)
[2019-12-27] MEDS ORDERED: ALUMINUM/MAGNESIUM SUSP 30 ML UDC PO PRN (10:10)
[2019-12-27] MEDS ORDERED: bisacodyL 10 MG SUPP PR PRN (10:10)
[2019-12-27] MEDS ORDERED: METOCLOPRAMIDE HCL INJ 5 MG/ML 2 ML VIAL IV PRN (10:10)
[2019-12-27] MEDS ORDERED: BETAMETHASONE DIP AUG (DIPROLENE) 0.05% CR 15 GM TUBE EXT PRN (10:22)
[2019-12-27] MEDS: SODIUM CHLORIDE 0.9% 1000ML 1,000 ML IV SCH ×2 (10:59→21:27)
[2019-12-27] MEDS: LOSARTAN POTASSIUM 50 MG TAB PO SCH (11:00)
[2019-12-27] MEDS: DOCUSATE SODIUM 100 MG CAP PO SCH ×2 (11:01→21:27)
[2019-12-27] MEDS: MULTIVITAMIN TAB PO SCH (11:02)
[2019-12-27] MEDS: ASPIRIN 81 MG ECTAB PO SCH ×2 (11:02→21:27)
[2019-12-27] MEDS: KETOROLAC TROMETHAMINE 15 MG/ML VIAL IV SCH ×3 (11:03→22:46)
[2019-12-27] MEDS: ACETAMINOPHEN 500 MG TAB PO SCH ×2 (13:27→21:28)
[2019-12-27] MEDS: ceFAZolin 1000MG 1,000 MG/7.5 ML SYR IV SCH ×2 (14:22→22:45)
[2019-12-27] MEDS: traMADol HCL 50 MG TABLET PO PRN ×3 (14:30→21:32)
[2019-12-27] MEDS ORDERED: TRANEXAMIC ACID / 0.7% NACL 1,000 MG/100 ML BAG IV SCH (14:32)
[2019-12-27] MEDS: Scopolamine CHECK PATCH PLACEMENT SCH (15:21)
[2019-12-27] MEDS: ASCORBIC ACID 500 MG TAB PO SCH (17:34)
[2019-12-27] MEDS: FERROUS GLUCONATE 324 MG TAB PO SCH (17:34)
[2019-12-27] MEDS ORDERED: SENNA 8.6 MG TAB PO SCH (21:00)
[2019-12-27] MEDS ORDERED: DOXEPIN HCL 25 MG CAPSULE PO SCH (21:00)
[2019-12-28] MEDS: Scopolamine CHECK PATCH PLACEMENT SCH ×2 (00:15→08:42)
[2019-12-28] MEDS: LOSARTAN POTASSIUM 50 MG TAB PO SCH (04:18)
[2019-12-28] MEDS: KETOROLAC TROMETHAMINE 15 MG/ML VIAL IV SCH ×2 (04:18→10:46)
--- NOTE | 2019-12-28 04:21 | Orthopedic Progress Note ---
Date of Service December 28, 2019 Assessment & Plan (1) Hypertension: Called re elevated BP and HR 119. Asymptomatic Same vitals were seen yesterday in preop. She has been without Losartan perioperatively and scheduled to restart this am. Recommended giving Losartan now. Recheck vitals in hour or with any symptoms. Present on Admission?: Yes Admission and Anticipated Discharge Date Admission Date: December 27, 2019 Results & Data ([facility]) Vital Signs (Past 12 Hours) Vital Signs H & H 11/28/19 Range/Units 12:04 Hgb 11.1 L (12.0-16.0) g/dL Hct 34.8 L (37-47) % Coagulation 11/28/19 Range/Units 12:04 INR 1.0 (0.9-1.1) Temp Pulse Resp BP BP Pulse Ox 12/28/19 03:38 36.5 C 119 H 18 180/82 H 94 12/27/19 23:32 36.4 C L 79 20 167/73 H 94 12/27/19 19:07 36.4 C L 76 19 175/77 H 99 Selected Entries 12/27/19 05:20 12/27/19 19:07 Blood Pressure [Right Arm] 186/93 H 175/77 H Blood Pressure Mean [Right Arm] 124 109 PG Care Time/CCT Total # of Minutes Spent Total Time Spent with Patient: Total time spent is greater than 50% in coordi nation of care (as documented) at patient's floor/unit and/or counseling patient: Coding Level of Care Code None Diagnoses Hypertension I10
[2019-12-28] MEDS: ACETAMINOPHEN 500 MG TAB PO SCH (05:49)
[2019-12-28 06:19] LABS: Hemoglobin 9.7 g/dL (12.0-16.0); Mean Corpuscular Hemoglobin 30.2 pg (25-34); Mean Corpuscular Hgb Conc 32.3 g/dL (32-36); Mean Corpuscular Volume 93.5 fL (80-100); Mean Platelet Volume 10.1 fL (7.4-10.4); Platelet Count 294 K/uL (130-400); RDW Coefficient of Variation 13.2 % (11.5-14.5); RDW Standard Deviation 44.8 fL (36.4-46.3); Red Blood Count 3.21 M/uL (4.2-5.4); White Blood Count 15.94 K/uL (4.8-10.8)
[2019-12-28 06:49] LABS: BUN Creatinine Ratio 15.5 (10-20); Calcium 8.8 mg/dl (8.5-10.1); Creatinine Clr Calc Pharmacy 42.7 ml/min; Est GFR (African American) 49.6; Est GFR (Non-African American) 42.8; Potassium 4.3 mmol/L (3.5-5.1)
[2019-12-28] MEDS: DOCUSATE SODIUM 100 MG CAP PO SCH (08:40)
[2019-12-28] MEDS: FERROUS GLUCONATE 324 MG TAB PO SCH (08:40)
[2019-12-28] MEDS: ASCORBIC ACID 500 MG TAB PO SCH (08:40)
[2019-12-28] MEDS: ASPIRIN 81 MG ECTAB PO SCH (08:41)
[2019-12-28] MEDS: MULTIVITAMIN TAB PO SCH (08:41)
[2019-12-28] MEDS: traMADol HCL 50 MG TABLET PO PRN (08:44)
[2019-12-28] MEDS ORDERED: ATORVASTATIN 40 MG TAB PO SCH (09:00)
--- NOTE | 2019-12-28 09:31 | Progress Notes ---
DATE: 12/28/2019 SUBJECTIVE: A 69-year-old white female postop day 1 from a right knee replacement. She is doing well. Had good night. Pain is controlled. No chest pain or shortness of breath. Not feeling dizzy or lightheaded. Doing well with pain medicines. OBJECTIVE: VITAL SIGNS: Temperature 36.3. Vital signs stable. GENERAL: Shows a pleasant, middle-aged female. She is sitting up in bed and talking to her , looks comfortable. LUNGS: Clear to auscultation. HEART: Has a regular rate and rhythm. ABDOMEN: Soft, nontender, nondistended. EXTREMITIES: Grossly neurovascularly intact except as follows. Examination of the right leg reveals the leg to be well aligned. Dressing is clean, dry and intact. She can dorsiflex and plantarflex her foot appropriately. She is neurologically intact. LABORATORY DATA: Hemoglobin 9.7. Hematocrit 30.0. White cell count 15.94. Electrolytes are relatively stable. Creatinine just slightly elevated. ASSESSMENT: A 69-year-old white female postop day 1 from right knee replacement, doing well. Her pain is controlled. White cell count is elevated, likely related to stress. Creatinine slightly elevated, probably due to volume depletion. Pain is controlled. PLAN: 1. DVT prophylaxis including thigh-high TEDs, SCDs, and aspirin twice a day. 2. PT/OT. Weight bear as tolerated. Right total knee protocol. 3. Pain control, doing well with current pain regimen. 4. Anemia. Asymptomatic. We will continue iron supplementation. 5. Slightly elevated creatinine. Likely related to low volume depletion. Wound care, encouraged p.o. intake. We will hold tramadol. 6. Disposition: Plan to discharge to home with outpatient therapy if does okay today.
--- NOTE | 2019-12-31 06:31 | Discharge Summary ---
Date of Service December 31, 2019 Admission HPI Per Admitting Provider Documented in the H & P Admission Exam (Per Admitting) Constitutional Documented in the H & P Discharge Data Consultations 12/27/19 10:10 Consult Case Management - Discharge Planning Routine Procedures Performed Operation Date: 12/27/19 07:00 Actual Procedures p Right Total Knee Replacement(Right) - Malik Acevedo MD Hospital Course (1) Status post total right knee replacement: This patient is a 69 year old female admitted on 12/27/19 and underwent total knee arthroplasty. She tolerated the procedure well and there were no complications. Transferred to the PACU post op and later to the orthopedic floor for further care. She was given ancef for antibiotic prophylaxis. She was also given JOSHUA stockings, SCDs, and aspirin for DVT prophylaxis. Hemoglobin, hematocrit, and vital signs were monitored during her hospital stay and remained stable. Did not require any blood transfusions. She did receive an iron supplement. There were no complications during her hospital stay. By post op day #1 the patient was tolerating a regular diet, pain was reasonably controlled with oral pain medicine, and she was participating in physical therapy. On post op day #1 the patient was discharged home. She was given printed discharge instructions including prescriptions for extra strength tylenol, aspirin, iron supplement, and tramadol. Continue physical therapy, weight bearing as tolerated. Continue JOSHUA stockings. Follow up approximately 2 weeks post op or sooner if there are problems or concerns. Coding Level of Care Code None Diagnoses Status post total right knee replacement Z96.651
== END 2019-12-28 11:35 | disposition home or self-care (01) ==
LOC: 3E 05:10 → ASU 05:10